=== PATIENT | female | born 1990 | race African-American/Black ===

== ENCOUNTER 2020-06-28 04:17 | Emergency (ER) | payer MEDICAID ==
[~2020-06-28] VITALS: Ht 172.7 cm; Wt 78.0 kg
[2020-06-28] MEDS ORDERED: KETOROLAC 30MG/ML VIAL IV STA (05:01)
[2020-06-28] MEDS ORDERED: FENTANYL CITRATE/PF 50MCG/ML 2ML VIAL IV ONE (05:45)
[2020-06-28] MEDS ORDERED: MIDAZOLAM HCL 2 MG/2 ML VIAL IV ONE (05:45)
[2020-06-28] MEDS ORDERED: KETAMINE HCL 50 MG/ML 10ML ONE (05:56)
[2020-06-28] MEDS ORDERED: KETAMINE HCL 50 MG/ML 10ML IV ONE ×2 (06:00→06:15)
[2020-06-28] MEDS ORDERED: ONDANSETRON 4MG ODT PO ONE (10:00)
[2020-06-28 10:51] VITALS: BP 150/59
== END 2020-06-28 10:52 | disposition home or self-care (01) ==
LOC: ER 04:17
DX: S43.005A Unspecified dislocation of left shoulder joint, initial encounter (principal); Z98.890 Other specified postprocedural states; X58.XXXA Exposure to other specified factors, initial encounter; Y93.89 Activity, other specified; Y92.018 Other place in single-family (private) house as the place of occurrence of the external cause
CPT/HCPCS: 23650; 73020; 93005; 96374; 96375; 99152; 99285; J1885; J2250; J3010; J3490; Q0162; Z7610; L3670